=== PATIENT | male | born 1965 | race American Indian/Alaskan Native ===

== ENCOUNTER 2017-08-02 15:50 | Inpatient (IN) | payer BC, OTHER ==
[2017-08-02 16:31] LABS: Basophils % (Auto) 0.8 % (0.0-1.8); Eosinophils % (Auto) 5.3 % (0.0-4.3); Hematocrit 47.2 % (35.5-45.6); Hemoglobin 15.7 gm/dl (11.8-15.2); Mean Corpuscular HGB Conc 33 % (32-34); Mean Corpuscular Hemoglobin 30 pg (28-32); Mean Corpuscular Volume 89 fl (84-94); Platelet Count 256 K/mm3 (140-440); Red Cell Distribution Width 14.4 % (13.2-15.2); White Blood Count 8.6 K/mm3 (4.5-11.0)
[2017-08-02 18:43] LABS: Calcium 9.4 mg/dL (8.4-10.2); Chloride 96.7 mmol/L (98-107); Potassium 4.4 mmol/L (3.6-5.0)
[2017-08-03] MEDS ORDERED: CATAPRES PO ONE (03:07)
[2017-08-03] MEDS ORDERED: CATAPRES ONE (03:10)
--- NOTE | 2017-08-03 04:22 | Emergency Department Report ---
ED General Adult HPI - General Chief complaint: High BP Stated complaint: BLOOD PRESSURE HIGH Time Seen by Provider: 08/03/17 03:21 Source: patient Mode of arrival: Ambulatory Limitations: No Limitations - History of Present Illness Initial comments: PT HERE BECAUSE HE HAS BEEN HAVING ELEVATED BLOOD PRESSURE FOR ABOUT A WEEK. HE IS COMPLIANT WITH HIS MEDICATION AND HIS PRESSURE IS STILL HIGH. BPT HAS NO HEADACHE WHILE HERE MD Complaint: HTN -: Gradual Location: head (PAIN INTERMITTENTLY) Severity scale (0 -10): 4 Quality: aching Consistency: intermittent Improves with: none Worsens with: rest Associated Symptoms: denies other symptoms - Related Data Home Medications Medication Instructions Recorded Confirmed Last Taken Benazepril HCl 40 mg PO DAILY 08/03/17 08/03/17 Unknown Allergies Allergy/AdvReac Type Severity Reaction Status Date / Time No Known Allergies Allergy Verified 08/02/17 15:58 ED Review of Systems ROS: Stated complaint: BLOOD PRESSURE HIGH Other details as noted in HPI Constitutional: denies: chills, fever Eyes: denies: eye pain, eye discharge, vision change ENT: denies: ear pain, throat pain Respiratory: denies: cough, shortness of breath, wheezing Cardiovascular: denies: chest pain, palpitations Endocrine: no symptoms reported Gastrointestinal: denies: abdominal pain, nausea, diarrhea Genitourinary: denies: urgency, dysuria Musculoskeletal: denies: back pain, joint swelling, arthralgia Skin: denies: rash, lesions Neurological: headache. denies: weakness, paresthesias Psychiatric: denies: anxiety, depression Hematological/Lymphatic: denies: easy bleeding, easy bruising ED Past Medical Hx - Past Medical History Hx Hypertension: Yes - Surgical History Past Surgical History?: No - Social History Smoking Status: Current Every Day Smoker Substance Use Type: None - Medications Home Medications: Home Medications Medication Instructions Recorded Confirmed Last Taken Type Benazepril HCl 40 mg PO DAILY 08/03/17 08/03/17 Unknown History ED Physical Exam - General Limitations: No Limitations General appearance: alert, in no apparent distress - Head Head exam: Present: atraumatic, normocephalic - Eye Eye exam: Present: normal appearance, EOMI - ENT ENT exam: Present: mucous membranes moist - Neck Neck exam: Present: normal inspection, full ROM - Respiratory Respiratory exam: Present: normal lung sounds bilaterally. Absent: respiratory distress - Cardiovascular Cardiovascular Exam: Present: regular rate, normal rhythm. Absent: systolic murmur, diastolic murmur, rubs, gallop - GI/Abdominal GI/Abdominal exam: Present: soft, normal bowel sounds - Rectal Rectal exam: Present: deferred - Extremities Exam Extremities exam: Present: normal inspection, full ROM - Back Exam Back exam: Present: normal inspection - Neurological Exam Neurological exam: Present: alert, oriented X3, CN II-XII intact, normal gait. Absent: motor sensory deficit - Psychiatric Psychiatric exam: Present: normal affect, normal mood - Skin Skin exam: Present: warm, dry, intact, normal color. Absent: rash ED Course Vital Signs 08/02/17 08/03/17 08/03/17 15:59 02:56 03:11 Temperature 98.1 F Pulse Rate 81 60 100 H Respiratory 18 16 Rate Blood Pressure 182/113 175/111 Blood Pressure 175/111 [Left] O2 Sat by Pulse 99 100 Oximetry 08/03/17 08/03/17 03:12 05:10 Temperature Pulse Rate 51 L Respiratory 16 16 Rate Blood Pressure Blood Pressure 155/99 [Left] O2 Sat by Pulse 100 100 Oximetry ED Medical Decision Making - Lab Data Result diagrams: 08/02/17 16:06 08/02/17 16:06 - EKG Data EKG shows normal: sinus rhythm - EKG Data Interpretation: nonspecific ST-T wave faraz, LVH - Radiology Data Radiology results: report reviewed (CT HEAD:NEGATIVE) Critical care attestation.: If time is entered above; I have spent that time in minutes in the direct care of this critically ill patient, excluding procedure time. ED Disposition Clinical Impression: HTN (hypertension) Qualifiers: Hypertension type: unspecified Qualified Code(s): I10 - Essential (primary) hypertension Acute renal failure (ARF) Qualifiers: Acute renal failure type: unspecified Qualified Code(s): N17.9 - Acute kidney failure, unspecified Headache Qualifiers: Headache type: unspecified Headache chronicity pattern: unspecified pattern Intractability: not intractable Qualified Code(s): R51 - Headache Disposition: OP ADMIT IP TO THIS HOSP Is pt being admited?: Yes Does the pt Need Aspirin: No Condition: Stable Instructions: Hypertension (ED) Referrals: PRIMARY CARE, [Primary Care Provider] - 3-5 Days Time of Disposition: 06:16 (CASE REVIEWED WITH DR NASH AND HE WILL ADMIT THE PT TO THE HOSPITAL )
--- NOTE | 2017-08-03 04:33 | Cat Scan Report ---
FINAL REPORT EXAM: CT HEAD/BRAIN WO CON HISTORY: headache TECHNIQUE: CT imaging is acquired through the brain without contrast. Transaxial reformations are provided. PRIORS: None. FINDINGS: Ventricles and CSF spaces are within normal limits. Scattered deep and subcortical white matter hypodense foci are most compatible with microvascular angiopathy. No acute intracranial hemorrhage or mass effect. Calvarium and superficial scalp are intact. Partially visualized paranasal sinuses are clear. Mastoids are clear. IMPRESSION: No acute intracranial abnormality. Consider follow-up MRI as warranted. 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
[2017-08-03] MEDS ORDERED: APRESOLINE IV ONE (06:01)
[2017-08-03 07:00] LABS: Urine Drugs of Abuse Note Disclamer
[2017-08-03] MEDS ORDERED: APRESOLINE IV PRN (09:58)
--- NOTE | 2017-08-03 09:58 | History and Physical Report ---
<KOBE KAY - Last Filed: 08/03/17 15:20> History of Present Illness Date of examination: 08/03/17 Date of admission: 08/03/17 06:15 Chief complaint: Increased blood pressure History of present illness: Patient 52 years old with past medical history hypertension who presents to the emergency department for chef de partie complains increased in blood pressure. 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 Patient got worried came to the emergency department. Past History Past Medical History: hypertension Past Surgical History: No surgical history Social history: smoking Family history: hypertension Medications and Allergies Allergies Allergy/AdvReac Type Severity Reaction Status Date / Time No Known Allergies Allergy Verified 08/02/17 15:58 Home Medications Medication Instructions Recorded Confirmed Last Taken Type Benazepril HCl 40 mg PO DAILY 08/03/17 08/03/17 Unknown History Active Meds: Active Medications Hydralazine HCl (Apresoline) 50 mg PO Q8HR [facility] Hydralazine HCl (Apresoline) 20 mg IV Q4H PRN PRN Reason: Blood Pressure Nifedipine (Procardia Xl) 60 mg PO QDAY KARE[facility] Review of Systems Constitutional: no weight gain, no fever, no chills, no sweats Ears, nose, mouth and throat: no tinnitis, no decreased hearing, no nose pain, no nasal congestion Cardiovascular: no chest pain, no edema Respiratory: no cough with sputum, no excessive sputum, no hemoptysis Gastrointestinal: no diarrhea, no constipation, no change in bowel habits Genitourinary Male: no hematuria, no flank pain, no discharge, no urinary frequency Rectal: no incontinence, no bleeding Musculoskeletal: no arm numbness/tingling, no low back pain, no shooting leg pain Integumentary: no redness, no sores, no wounds Neurological: no weakness, no parathesias, no numbness, no tingling Psychiatric: no change in appetite, no change in libido Endocrine: no excessive thirst, no polydipsia, no polyuria Hematologic/Lymphatic: no easy bruising, no easy bleeding Allergic/Immunologic: no urticaria, no allergic rhinitis Exam - Constitutional Vitals: Temp Pulse Resp BP Pulse Ox 989.1 F H 65 12 163/117 98 08/03/17 08:32 08/03/17 08:32 08/03/17 08:32 08/03/17 08:32 08/03/17 08:32 General appearance: Present: no acute distress - EENT Eyes: Present: PERRL ENT: hearing intact - Neck Neck: Present: supple - Respiratory Respiratory effort: normal Respiratory: bilateral: CTA - Cardiovascular Rhythm: regular Heart Sounds: Present: S1 & S2 - Abdominal General gastrointestinal: Present: soft, non-tender Male genitourinary: Present: deferred - Rectal Rectal Exam: deferred - Integumentary Integumentary: Present: clear, warm, dry - Musculoskeletal Musculoskeletal: strength equal bilaterally - Psychiatric Psychiatric: appropriate mood/affect - Neurologic Neurologic: CNII-XII intact - Allied Health Allied health notes reviewed: nursing Results - Labs CBC & Chem 7: 08/02/17 16:06 08/02/17 16:06 Labs: Laboratory Last Values WBC 8.6 K/mm3 (4.5-11.0) 08/02/17 16:06 RBC 5.30 M/mm3 (3.65-5.03) H 08/02/17 16:06 Hgb 15.7 gm/dl (11.8-15.2) H 08/02/17 16:06 Hct 47.2 % (35.5-45.6) H 08/02/17 16:06 MCV 89 fl (84-94) 08/02/17 16:06 MCH 30 pg (28-32) 08/02/17 16:06 MCHC 33 % (32-34) 08/02/17 16:06 RDW 14.4 % (13.2-15.2) 08/02/17 16:06 Plt Count 256 K/mm3 (140-440) 08/02/17 16:06 Lymph % (Auto) 33.2 % (13.4-35.0) 08/02/17 16:06 Nicollet % (Auto) 8.2 % (0.0-7.3) H 08/02/17 16:06 Eos % (Auto) 5.3 % (0.0-4.3) H 08/02/17 16:06 Baso % (Auto) 0.8 % (0.0-1.8) 08/02/17 16:06 Lymph # 2.9 K/mm3 (1.2-5.4) 08/02/17 16:06 Nicollet # 0.7 K/mm3 (0.0-0.8) 08/02/17 16:06 Eos # 0.5 K/mm3 (0.0-0.4) H 08/02/17 16:06 Baso # 0.1 K/mm3 (0.0-0.1) 08/02/17 16:06 Seg Neutrophils % 52.5 % (40.0-70.0) 08/02/17 16:06 Seg Neutrophils # 4.5 K/mm3 (1.8-7.7) 08/02/17 16:06 Sodium 133 mmol/L (137-145) L 08/02/17 16:06 Potassium 4.4 mmol/L (3.6-5.0) 08/02/17 16:06 Chloride 96.7 mmol/L (98-107) L 08/02/17 16:06 Carbon Dioxide 17 mmol/L (22-30) L 08/02/17 16:06 Anion Gap 24 mmol/L 08/02/17 16:06 BUN 101 mg/dL (9-20) H 08/02/17 16:06 Creatinine 3.2 mg/dL (0.8-1.5) H 08/02/17 16:06 Estimated GFR 25 ml/min 08/02/17 16:06 BUN/Creatinine Ratio 32 % 08/02/17 16:06 Glucose 190 mg/dL (75-100) H 08/02/17 16:06 Calcium 9.4 mg/dL (8.4-10.2) 08/02/17 16:06 Urine Opiates Screen Presumptive negative 08/03/17 Unknown Urine Methadone Screen Presumptive negative 08/03/17 Unknown Ur Barbiturates Screen Presumptive negative 08/03/17 Unknown Ur Phencyclidine Scrn Presumptive negative 08/03/17 Unknown Ur Amphetamines Screen Presumptive negative 08/03/17 Unknown U Benzodiazepines Scrn Presumptive negative 08/03/17 Unknown Urine Cocaine Screen Presumptive negative 08/03/17 Unknown U Marijuana (THC) Screen Presumptive negative 08/03/17 Unknown Drugs of Abuse Note Disclamer 08/03/17 Unknown Plasma/Serum Alcohol < 0.01 gm% (0-0.07) 08/03/17 06:39 - Imaging and Cardiology Chest x-ray: image reviewed CT Scan - head: image reviewed (No acute intracranial process) Assessment and Plan Assessment and plan: Patient 52 years old with past medical history hypertension who presents to the emergency department for chef de partie complains increased in blood pressure. 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 Uncontrolled hypertension Started on oral Proscar and hydralazine IV hydralazine For SBP>160 Closely monitor blood pressure Acute Renal failure/vasomotor nephropathy IV Fluid hydration Renal US ordered Nephrology consult Tobacco abuse Smoking cessation consult done patient strongly advised to quit. DVT prophylaxis Heparin Advance Directives: Yes VTE prophylaxis?: Chemical Contraindication Mechanical VTE Prophylaxis: Treatment Not Indicated Plan of care discussed with patient/family: Yes <AARTI DOS SANTOS - Last Filed: 08/04/17 07:54> History of Present Illness Date of admission: 08/03/17 06:15 Medications and Allergies Active Meds: Active Medications Hydralazine HCl (Apresoline) 50 mg PO Q8HR [facility] Last Admin: 08/04/17 06:24 Dose: 50 mg Hydralazine HCl (Apresoline) 20 mg IV Q4H PRN PRN Reason: Blood Pressure Sodium Chloride (Nacl 0.9% 1000 Ml) 1,000 mls @ 125 mls/hr IV DIRECT [facility] Last Admin: 08/04/17 01:41 Dose: 125 mls/hr Nifedipine (Procardia Xl) 60 mg PO QDAY [facility] Last Admin: 08/03/17 11:00 Dose: 60 mg Exam - Constitutional Vitals: Temp Pulse Resp BP Pulse Ox 98.4 F 52 L 17 130/81 97 08/03/17 22:12 08/04/17 06:24 08/04/17 03:39 08/04/17 06:24 08/03/17 22:12 Results - Labs CBC & Chem 7: 08/02/17 16:06 08/02/17 16:06 Labs: Laboratory Last Values WBC 8.6 K/mm3 (4.5-11.0) 08/02/17 16:06 RBC 5.30 M/mm3 (3.65-5.03) H 08/02/17 16:06 Hgb 15.7 gm/dl (11.8-15.2) H 08/02/17 16:06 Hct 47.2 % (35.5-45.6) H 08/02/17 16:06 MCV 89 fl (84-94) 08/02/17 16:06 MCH 30 pg (28-32) 08/02/17 16:06 MCHC 33 % (32-34) 08/02/17 16:06 RDW 14.4 % (13.2-15.2) 08/02/17 16:06 Plt Count 256 K/mm3 (140-440) 08/02/17 16:06 Lymph % (Auto) 33.2 % (13.4-35.0) 08/02/17 16:06 Nicollet % (Auto) 8.2 % (0.0-7.3) H 08/02/17 16:06 Eos % (Auto) 5.3 % (0.0-4.3) H 08/02/17 16:06 Baso % (Auto) 0.8 % (0.0-1.8) 08/02/17 16:06 Lymph # 2.9 K/mm3 (1.2-5.4) 08/02/17 16:06 Nicollet # 0.7 K/mm3 (0.0-0.8) 08/02/17 16:06 Eos # 0.5 K/mm3 (0.0-0.4) H 08/02/17 16:06 Baso # 0.1 K/mm3 (0.0-0.1) 08/02/17 16:06 Seg Neutrophils % 52.5 % (40.0-70.0) 08/02/17 16:06 Seg Neutrophils # 4.5 K/mm3 (1.8-7.7) 08/02/17 16:06 Sodium 133 mmol/L (137-145) L 08/02/17 16:06 Potassium 4.4 mmol/L (3.6-5.0) 08/02/17 16:06 Chloride 96.7 mmol/L (98-107) L 08/02/17 16:06 Carbon Dioxide 17 mmol/L (22-30) L 08/02/17 16:06 Anion Gap 24 mmol/L 08/02/17 16:06 BUN 101 mg/dL (9-20) H 08/02/17 16:06 Creatinine 3.2 mg/dL (0.8-1.5) H 08/02/17 16:06 Estimated GFR 25 ml/min 08/02/17 16:06 BUN/Creatinine Ratio 32 % 08/02/17 16:06 Glucose 190 mg/dL (75-100) H 08/02/17 16:06 Calcium 9.4 mg/dL (8.4-10.2) 08/02/17 16:06 Urine Opiates Screen Presumptive negative 08/03/17 Unknown Urine Methadone Screen Presumptive negative 08/03/17 Unknown Ur Barbiturates Screen Presumptive negative 08/03/17 Unknown Ur Phencyclidine Scrn Presumptive negative 08/03/17 Unknown Ur Amphetamines Screen Presumptive negative 08/03/17 Unknown U Benzodiazepines Scrn Presumptive negative 08/03/17 Unknown Urine Cocaine Screen Presumptive negative 08/03/17 Unknown U Marijuana (THC) Screen Presumptive negative 08/03/17 Unknown Drugs of Abuse Note Disclamer 08/03/17 Unknown Plasma/Serum Alcohol < 0.01 gm% (0-0.07) 08/03/17 06:39 Assessment and Plan Assessment and plan: I saw and evaluated the patient. I agree with the findings and the plan of care as documented in the Nurse Practitioner's H/P note. Advance Directives: Yes VTE prophylaxis?: Chemical Plan of care discussed with patient/family: Yes
[2017-08-03] MEDS ORDERED: BENAZEPRIL HCL 40 MG PO SCH (10:00)
[2017-08-03] MEDS: PROCARDIA XL PO SCH (11:00)
--- NOTE | 2017-08-03 13:43 | Ultrasound Report ---
ULTRASOUND RENAL BILATERAL HISTORY: Acute renal failure. TECHNIQUE: transabdominal ultrasound with color Doppler interrogation. FINDINGS: The right kidney measures 11.4cm. Right renal cortex: 1.4cm. The left kidney measures 12.8cm. Left renal cortex: 1.5cm. Scans of the kidneys show normal renal contours. There is normal central calyceal clustering and good preservation of the cortical thickness. There is no evidence of mass or hydronephrosis. The views of the bladder and the region of the ureters appear normal. IMPRESSION: Unremarkable renal ultrasound.
[2017-08-03] MEDS: APRESOLINE PO SCH ×2 (14:15→22:16)
[2017-08-03] MEDS: NACL 0.9% 1000 ML 1,000 ML IV SCH (16:27)
[2017-08-03] MEDS ORDERED: PNEUMOVAX 23 IM ONE (17:25)
[2017-08-04] MEDS: NACL 0.9% 1000 ML 1,000 ML IV SCH ×2 (01:41→11:11)
[2017-08-04] MEDS: APRESOLINE PO SCH ×2 (06:24→15:22)
[2017-08-04 09:47] LABS: BUN/Creatinine Ratio 20; Blood Urea Nitrogen 16 mg/dL (9-20); Calcium 8.3 mg/dL (8.4-10.2); Carbon Dioxide 25 mmol/L (22-30); Chloride 105.8 mmol/L (98-107); Glucose 97 mg/dL (75-100); Potassium 3.5 mmol/L (3.6-5.0); Sodium 142 mmol/L (137-145)
[2017-08-04 09:48] LABS: Anion Gap 15 mmol/L
[2017-08-04] MEDS: PROCARDIA XL PO SCH (10:01)
--- NOTE | 2017-08-04 11:04 | Discharge Summary ---
Providers - Providers Date of Admission: 08/03/17 06:15 Date of discharge: 08/04/17 Attending physician: AARTI DOS SANTOS MD 08/03/17 09:58 Consult to Physician [CONS] Routine Consulting Provider: SANAZ RUIZ Reason For Exam: ARF Place consult to:: NEPHROLOGY Notified:: Y Was contact made?: Yes If yes, spoke with:: OFFICE DAISY Time called:: 10:00 Primary care physician: ASSISTANT STATISTICIAN Hospitalization Reason for admission: Hypertensive urgency, ELIER Condition: Stable Pertinent studies: Renal ultrasound - Normal findings CT head was normal Hospital course: Patient 52 years old with past medical history hypertension who 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 Patient got worried came to the emergency department. In the emergency department patient had hypertensive emergency and acute renal failure. Patient was admitted to the floor and he was given IV fluids and BP pressure was controlled, nephrology consulted and renal ultrasound was done. His creatinine level at admission was 3.2 and next morning his creatinine went down to 0.8 and blood pressure was controlled. I have talked with the food services manager and he recommended to discharge the patient advised to have follow-up as an O/P. Patient was given amlodipine and hydralazine, advised to follow-up with primary care physician nephrology. Patient is hemodynamically stable at time of discharge. Patient's questions and concerns were addressed at the bedside. Disposition: - TO HOME OR SELFCARE Time spent for discharge: 31 minutes - Discharge Diagnoses (1) Acute renal failure (ARF) Status: Acute Qualifiers: Acute renal failure type: unspecified Qualified Code(s): N17.9 - Acute kidney failure, unspecified (2) HTN (hypertension) Status: Acute Qualifiers: Hypertension type: unspecified Qualified Code(s): I10 - Essential (primary ) hypertension (3) Headache Status: Acute Qualifiers: Headache type: unspecified Headache chronicity pattern: unspecified pattern Intractability: not intractable Qualified Code(s): R51 - Headache Core Measure Documentation - Palliative Care Palliative Care/ Comfort Measures: Not Applicable - Core Measures Any of the following diagnoses?: none Exam - Physical Exam Narrative exam: Not in cardiopulmonary distress. The patient appeared well nourished and normally developed. Vital signs as documented. Head exam is unremarkable. No scleral icterus . Neck is without jugular venous distension, thyromegaly, or carotid bruits. Lungs are clear to auscultation. Cardiac exam reveals regular rate and Rhythm. First and second heart sounds normal. No murmurs, rubs or gallops. Abdominal exam reveals normal bowel sounds, no masses, no organomegaly and no aortic enlargement. Extremities are nonedematous and both femoral and pedal pulses are normal. RISK CONTROL FIELD REPRESENTATIVE: Alert and oriented 3. No focal weakness. - Constitutional Vitals: Temp Pulse Resp BP Pulse Ox 98.0 F 76 18 141/86 97 08/04/17 07:57 08/04/17 07:57 08/04/17 07:57 08/04/17 07:57 08/04/17 07:57 Plan Activity: no restrictions Weight Bearing Status: Full Weight Bearing Diet: low salt Additional Instructions: Please F/U at [facility] in 1 week Follow up with: ROJELIO LEBLANC MD [Primary Care Provider] - 3-5 Days SANAZ RUIZ MD [Staff Physician] - 14 Days Prescriptions: amLODIPine [Norvasc] 10 mg PO DAILY #30 tab hydrALAZINE [Apresoline TAB] 100 mg PO TID #90 tab
[2017-08-04 15:04] VITALS: BP 148/87
== END 2017-08-04 17:00 | disposition home or self-care (01) | DRG 304 ==
LOC: ED 15:50 → 3A 08-03 06:15
PROVIDERS: ADMIT Internal Medicine; ATTEND Internal Medicine
PROC: 3E0234Z Introduction of Serum, Toxoid and Vaccine into Muscle, Percutaneous Approach (ICD-10-PCS; principal; 2017-08-03)
DX: I16.0 Hypertensive urgency (principal); N17.0 Acute kidney failure with tubular necrosis; I10 Essential (primary) hypertension; R51 Headache; F17.200 Nicotine dependence, unspecified, uncomplicated; Z82.49 Family history of ischemic heart disease and other diseases of the circulatory system; Z23 Encounter for immunization
CPT/HCPCS: 36415; 70450; 76770; 80048; 80307; 80320; 85025; 90732; 93005; 93010; G0480; J7030